=== PATIENT | female | born 1965 | race American Indian/Alaskan Native ===

== ENCOUNTER 2017-01-25 16:43 | Emergency (ER) | payer OTHER ==
[2017-01-25 17:20] VITALS: BP 157/83; PULSE 89; RESP 18; TEMP 98.9; O2SAT 100
--- NOTE | 2017-01-25 17:43 | ED PDOC ---
HPI: Back Time Seen by Provider: 01/25/17 17:36 Chief Complaint (Nursing): Back Pain Chief Complaint (Provider): Left side pain History Per: Patient History/Exam Limitations: no limitations Onset/Duration Of Symptoms: Intermittent Episodes (since yesterday) Current Symptoms Are (Timing): Intermittent Episodes Additional Complaint(s): Rika is a 51 y/o female who presents to the ED complaining of left side pain, occurring intermittently since yesterday. Pain is triggered by patient bending over. She states on Wednesday she was cleaning her house and moving household items for 6-7 hours. Patient attributes the pain to a muscle spasm. She denies any associated fall, trauma, chest pain, shortness of breath, or back pain. No meds taken for pain relief. PMD: None Past Medical History Reviewed: Historical Data, Nursing Documentation, Vital Signs Vital Signs: Last Vital Signs Temp 98.9 F 01/25/17 17:18 Pulse 89 01/25/17 17:18 Resp 18 01/25/17 17:18 BP 157/83 H 01/25/17 17:18 Pulse Ox 100 01/25/17 17:18 - Medical History PMH: HTN - Surgical History Other surgeries: Fibroid tumor removal - Family History Family History: States: Stroke (Mother's side), Hypertension - Living Arrangements Living Arrangements: With Family - Social History Current smoker - smoking cessation education provided: No Alcohol: None Drugs: Denies - Home Medications Home Medications: Ambulatory Orders Medication Instructions Recorded Carvedilol [Coreg] 25 mg PO BID #0 tab 12/25/15 Losartan [Cozaar] 25 mg PO DAILY #30 tab 12/25/15 amLODIPine [Norvasc] 5 mg PO DAILY #30 tab 12/25/15 Cyclobenzaprine [Cyclobenzaprine 10 mg PO TID PRN #20 tab 01/25/17 HCl] Naproxen [Naprosyn] 500 mg PO BID #20 tab 01/25/17 - Allergies Allergies/Adverse Reactions: Allergies Allergy/AdvReac Type Severity Reaction Status Date / Time No Known Allergies Allergy Verified 12/24/15 18:28 Review of Systems ROS Statement: Except As Marked, All Systems Reviewed And Found Negative Cardiovascular: Negative for: Chest Pain Respiratory: Negative for: Shortness of Breath Musculoskeletal: Positive for: Other (Pain at left ribs/chest wall). Negative for: Back Pain Physical Exam - Reviewed Nursing Documentation Reviewed: Yes Vital Signs Reviewed: Yes - Physical Exam Appears: Positive for: Non-toxic, No Acute Distress Head Exam: Positive for: ATRAUMATIC, NORMAL INSPECTION, NORMOCEPHALIC Skin: Positive for: Normal Color. Negative for: Rash Eye Exam: Positive for: Normal appearance Cardiovascular/Chest: Positive for: Regular Rate, Rhythm, Other (Tenderness along the left costal margin and left lateral chest wall with no palpable bony deformity or ecchymosis) Respiratory: Positive for: Normal Breath Sounds. Negative for: Accessory Muscle Use, Crackles, Rales, Rhonchi, Wheezing, Respiratory Distress Gastrointestinal/Abdominal: Positive for: Soft. Negative for: Tenderness, Distended, Guarding, Rebound Back: Positive for: Normal Inspection. Negative for: L CVA Tenderness, R CVA Tenderness, Vertebral Tenderness Extremity: Positive for: Normal ROM. Negative for: Pedal Edema Neurologic/Psych: Positive for: Alert, Oriented - ECG Interpretation Of ECG: NSR 77 bpm, no acute finding, reviewed by PA and ED attending O2 Sat by Pulse Oximetry: 100 (RA) Pulse Ox Interpretation: Normal - Other Rad CXR with left rib series X-Ray: Interpreted by Me, Viewed By Me X-Ray Interpretation: no fx, no dis Medical Decision Making Medical Decision Makin51 year old with left chest wall pain s/p exertional activity yesterday Time: 17:37 Plan: --EKG --X-Ray Left Ribs and Chest --Patient will be given Flexeril PO and IM Toradol injection Patient is aware of x-ray results, all questions answered. Patient reports improvement of pain after meds given. Prescriptions given for Naprosyn and Flexeril. Patient was advised to take as needed for pain. Patient does not have PMD, she was referred to medicine on-call for follow-up Scribe Attestation: Documented by Katerina Smith, acting as a scribe for Kelsie Perez PA-C Provider Scribe Attestation: All medical record entries made by the Scribe were at my direction and personally dictated by me. I have reviewed the chart and agree that the record accurately reflects my personal performance of the history, physical exam, medical decision making, and the department course for this patient. I have also personally directed, reviewed, and agree with the discharge instructions and disposition. Disposition - Clinical Impression Clinical Impression: Chest wall muscle strain - Patient ED Disposition Is Patient to be Admitted: No Counseled Patient/Family Regarding: Studies Performed, Diagnosis, Need For Followup, Rx Given - Disposition Referrals: Jeffrey Arreaga MD [Staff Provider] - Disposition: Routine/Home Disposition Time: 18:44 Condition: IMPROVED Additional Instructions: Rest as much as possible and avoid heavy lifting. Take rx meds as directed as needed for pain. Follow up with primary care doctor in 2-3 days or return any time if acutely worse. Prescriptions: Cyclobenzaprine [Cyclobenzaprine HCl] 10 mg PO TID PRN #20 tab PRN Reason: Muscle Spasm Naproxen [Naprosyn] 500 mg PO BID #20 tab Instructions: Chest Wall Pain (ED), Muscle Strain (ED) Forms: [employer] (Vietnamese)
--- NOTE | 2017-01-25 18:45 | RAD ---
PROCEDURE: Radiographs of the Chest and Left Ribs. HISTORY: Pain COMPARISON: 07/25/2015. TECHNIQUE: Frontal radiograph of the chest and multiple oblique radiographs of the left ribs were obtained. FINDINGS: LEFT RIBS: No fracture or focal lesion visualized. LUNGS: The lungs are well inflated and clear. PLEURA: No pneumothorax or pleural fluid. CARDIOVASCULAR: Normal sized heart. No pulmonary vascular congestion. OTHER FINDINGS: None. IMPRESSION: No acute findings. No acute rib fracture. Clear lungs.
--- NOTE | 2017-01-27 11:13 | CARD ---
APPROVED REPORT EKG Measurement Heart [id number] <Conclusion> Normal sinus rhythm Normal ECG
== END 2017-01-25 20:08 | disposition home or self-care (01) ==
LOC: H.ER 16:43
DX: S29.011A Strain of muscle and tendon of front wall of thorax, initial encounter (principal); X50.9XXA Other and unspecified overexertion or strenuous movements or postures, initial encounter; Y92.89 Other specified places as the place of occurrence of the external cause
CPT/HCPCS: 71101; 93005; 96372; 99281; J1885

== ENCOUNTER 2017-06-29 16:15 | Emergency (ER) | payer OTHER ==
[2017-06-29 17:17] VITALS: BP 155/78; PULSE 95; RESP 16; TEMP 98; O2SAT 97
--- NOTE | 2017-06-29 19:29 | ED PDOC ---
Lower Extremity Pain/Injury Time Seen by Provider: 06/29/17 18:21 Chief Complaint (Nursing): Lower Extremity Problem/Injury Chief Complaint (Provider): Right knee pain History Per: Patient History/Exam Limitations: no limitations Additional Complaint(s): 52 yo female presents with right knee pain. PT states she began work out and after began having pain. PT states she iced and elevated it but it did not help. Past Medical History Reviewed: Historical Data, Nursing Documentation, Vital Signs Vital Signs: Last Vital Signs Temp 98.0 F 06/29/17 17:13 Pulse 95 H 06/29/17 17:13 Resp 16 06/29/17 17:13 BP 155/78 H 06/29/17 17:13 Pulse Ox 97 06/29/17 17:13 - Medical History PMH: Hiatal Hernia, HTN Denies: HIV, Chronic Kidney Disease - Surgical History Surgical History: No Surg Hx - Family History Family History: States: Stroke (Mother's side), Hypertension - Living Arrangements Living Arrangements: With Family - Social History Current smoker - smoking cessation education provided: No - Home Medications Home Medications: Ambulatory Orders Medication Instructions Recorded Carvedilol [Coreg] 25 mg PO BID #0 tab 12/25/15 Losartan [Cozaar] 25 mg PO DAILY #30 tab 12/25/15 amLODIPine [Norvasc] 5 mg PO DAILY #30 tab 12/25/15 Cyclobenzaprine [Cyclobenzaprine 10 mg PO TID PRN #20 tab 01/25/17 HCl] Naproxen [Naprosyn] 500 mg PO BID #20 tab 01/25/17 - Allergies Allergies/Adverse Reactions: Allergies Allergy/AdvReac Type Severity Reaction Status Date / Time No Known Allergies Allergy Verified 06/29/17 17:13 Review of Systems ROS Statement: Except As Marked, All Systems Reviewed And Found Negative Constitutional: Negative for: Fever, Chills, Sweats Musculoskeletal: Positive for: Other (Right knee ) Physical Exam - Reviewed Nursing Documentation Reviewed: Yes Vital Signs Reviewed: Yes - Physical Exam Appears: Positive for: Well, Non-toxic, No Acute Distress Head Exam: Positive for: ATRAUMATIC, NORMAL INSPECTION, NORMOCEPHALIC Skin: Positive for: Normal Color, Warm, DRY Eye Exam: Positive for: Normal appearance ENT: Positive for: Normal ENT Inspection Neck: Positive for: Normal, Painless ROM Respiratory: Negative for: Accessory Muscle Use, Respiratory Distress Back: Positive for: Normal Inspection Extremity: Positive for: Normal ROM, Capillary Refill. Negative for: Tenderness , Calf Tenderness, Deformity, Swelling Neurologic/Psych: Positive for: Alert, Oriented - ECG O2 Sat by Pulse Oximetry: 97 Medical Decision Making Medical Decision Making: Pt states she wants an x-ray because her mother had history of arthritis. Knee x-ray normal. Disposition - Clinical Impression Clinical Impression: Knee pain - Patient ED Disposition Is Patient to be Admitted: No Counseled Patient/Family Regarding: Diagnosis, Need For Followup, Rx Given - Disposition Disposition: Routine/Home Disposition Time: 19:34 Condition: GOOD Instructions: Knee Pain (DC)
--- NOTE | 2017-06-30 11:08 | RAD ---
PROCEDURE: Right Knee Radiographs. HISTORY: right knee pain after working out COMPARISON: None. FINDINGS: BONES: Normal. No fracture. JOINTS: Patellofemoral osteoarthritis. Medial and lateral compartments are grossly preserved. Patellar articular surface is irregular. There are no shea articular erosions. JOINT EFFUSION: None. OTHER FINDINGS: None. IMPRESSION: Patellofemoral osteoarthritis.
== END 2017-06-29 19:55 | disposition home or self-care (01) ==
LOC: H.ER 16:15
DX: M25.561 Pain in right knee (principal); I10 Essential (primary) hypertension

== ENCOUNTER 2018-08-28 13:48 | Emergency (ER) | payer OTHER ==
[2018-08-28 14:03] VITALS: PULSE 80; RESP 16; TEMP 97.6; O2SAT 98
--- NOTE | 2018-08-28 15:01 | ED PDOC ---
HPI: General Adult Time Seen by Provider: 08/28/18 14:21 Chief Complaint (Nursing): Med Refill Chief Complaint (Provider): Med Refill History Per: Patient History/Exam Limitations: no limitations Onset/Duration Of Symptoms: Days Current Symptoms Are (Timing): Still Present Additional Complaint(s): 53 y/o female with a PMHx of HTN and Kidney Disease presents to the ED r equesting a refill of her amlodipine prescription. Patient offers no medical complaints at this time. Patient reports of currently taking amlodipine and notes of starting irbesartan today. Patient states irbesartan was recently changed from valsartan after reading in the media of potential cancer risk. Patient notes of being seen at both [facility] and [facility]. Patient was encouraged to choose one primary care doctor to prevent confusion with chronic medication management. Patient denies chest pain, shortness of breath, headache and weakness. PMD: [facility] & [facility] Past Medical History Reviewed: Historical Data, Nursing Documentation, Vital Signs Vital Signs: Last Vital Signs Temp 97.6 F 08/28/18 13:57 Pulse 80 08/28/18 13:57 Resp 16 08/28/18 13:57 BP 188/98 H 08/28/18 13:57 Pulse Ox 98 08/28/18 13:57 - Medical History PMH: Hiatal Hernia, HTN, Chronic Kidney Disease Denies: HIV - Surgical History Surgical History: No Surg Hx - Family History Family History: States: Stroke (Mother's side), Hypertension - Home Medications Home Medications: Ambulatory Orders Medication Instructions Recorded Carvedilol [Coreg] 25 mg PO BID #0 tab 12/25/15 Losartan [Cozaar] 25 mg PO DAILY #30 tab 12/25/15 amLODIPine [Norvasc] 5 mg PO DAILY #30 tab 12/25/15 Cyclobenzaprine [Cyclobenzaprine 10 mg PO TID PRN #20 tab 01/25/17 HCl] Naproxen [Naprosyn] 500 mg PO BID #20 tab 01/25/17 amLODIPine [Norvasc] 10 mg PO DAILY #20 tab 08/28/18 - Allergies Allergies/Adverse Reactions: Allergies Allergy/AdvReac Type Severity Reaction Status Date / Time No Known Allergies Allergy Verified 06/29/17 17:13 Review of Systems ROS Statement: Except As Marked, All Systems Reviewed And Found Negative Constitutional: Negative for: Weakness Cardiovascular: Negative for: Chest Pain Respiratory: Negative for: Shortness of Breath Neurological: Negative for: Weakness, Headache Physical Exam - Reviewed Nursing Documentation Reviewed: Yes Vital Signs Reviewed: Yes - Physical Exam Appears: Positive for: No Acute Distress Head Exam: Positive for: ATRAUMATIC Skin: Positive for: Normal Color, Warm, Dry Eye Exam: Positive for: Normal appearance Neck: Positive for: Normal Cardiovascular/Chest: Positive for: Regular Rate, Rhythm. Negative for: Bradycardia, Tachycardia Respiratory: Positive for: Normal Breath Sounds. Negative for: Respiratory Distress Gastrointestinal/Abdominal: Positive for: Normal Exam Extremity: Positive for: Normal ROM. Negative for: Deformity Neurological/Psych: Positive for: Awake, Alert, Oriented (x3). Negative for: Motor/Sensory Deficits - ECG O2 Sat by Pulse Oximetry: 98 (RA) Pulse Ox Interpretation: Normal Medical Decision Making Medical Decision Making: Time: 1430 A/P: -- Blood pressure elevated. Given patient is asyptomatic, patient does not require acute treatment in the ER. Patient will be start irbesartan today and continue amlodipine tomorrow. Scribe Attestation: Documented by Jeanna Baltazar, acting as a scribe for Emeka Patton III, DO. Provider Scribe Attestation: All medical record entries made by the Scribe were at my direction and personally dictated by me. I have reviewed the chart and agree that the record accurately reflects my personal performance of the history, physical exam, medical decision making, and the department course for this patient. I have also personally directed, reviewed, and agree with the discharge instructions and disposition. Disposition - Clinical Impression Clinical Impression: Hypertension - Patient ED Disposition Is Patient to be Admitted: No Counseled Patient/Family Regarding: Studies Performed, Diagnosis, Need For Followup, Rx Given - Disposition Referrals: [facility] [place] [Outside] Disposition: Routine/Home Disposition Time: 15:00 Condition: STABLE Additional Instructions: Followup with [facility] for further testing and blood pressure management. Take medications as directed. Discuss all your medications with your doctor on when and how to take. Return to ER for any worsening or new symptoms, headache, dizziness, nausea, pain, change vision, strength or speech. Prescriptions: amLODIPine [Norvasc] 10 mg PO DAILY #20 tab Instructions: High Blood Pressure in Adults, DASH Diet Forms: [facility] (Danish)
[2018-08-28 15:09] VITALS: BP 180/90
== END 2018-08-28 15:05 | disposition home or self-care (01) ==
LOC: H.ER 13:48
DX: Z76.0 Encounter for issue of repeat prescription (principal); I12.9 Hypertensive chronic kidney disease with stage 1 through stage 4 chronic kidney disease, or unspecified chronic kidney disease